=== PATIENT | female | born 1960 | race African-American/Black ===

== ENCOUNTER 2021-09-15 22:51 | Emergency (ER) | payer MEDICARE, OTHER ==
[~2021-09-15] VITALS: Ht 160 cm; Wt 111.1 kg
[2021-09-16] MEDS ORDERED: ALBUTEROL/IPRATROPIUM 3 ML NEB NEB ONE
[2021-09-16 00:14] LABS: BASOPHILS % 0.5 % (0.0-1.0); EOSINOPHILS # (AUTO) 0.2 (0.0-0.4); EOSINOPHILS % 3.1 % (0.0-6.0); HEMATOCRIT 40.6 % (34.2-44.1); HEMOGLOBIN 12.5 g/dL (12.0-16.0); LYMPHOCYTES % 40.2 % (18.0-39.1); MEAN CORPUSCULAR HEMOGLOBIN 31.7 pg (28-32); MEAN CORPUSCULAR HGB CONC 30.8 g/dL (31-35); MONOCYTES # (AUTO) 0.6 (0.2-0.8); MONOCYTES % 8.5 % (4.4-11.3); NEUTROPHILS # (AUTO) 3.5 (2.1-6.9); NEUTROPHILS % 47.4 % (38.7-80.0); PLATELET COUNT 217 x10e3/uL (140-360); RED BLOOD COUNT 3.94 x10e6/uL (3.6-5.1); RED CELL DISTRIBUTION WIDTH 17.8 % (11.7-14.4)
[2021-09-16 00:34] LABS: ALANINE AMINOTRANSFERASE 8 IU/L (0-55); ALBUMIN 3.9 g/dL (3.5-5.0); ALBUMIN/GLOBULIN RATIO 1.3 (0.8-2.0); ALKALINE PHOSPHATASE 70 IU/L (40-150); ANION GAP 14.2 mmol/L (8-16); BLOOD UREA NITROGEN 10 mg/dL (7-26); BUN/CREATININE RATIO 12 (6-25); CARBON DIOXIDE 28 mmol/L (22-29); CHLORIDE 102 mmol/L (98-107); CREATINE KINASE 43 IU/L (29-168); CREATININE, SERUM 0.82 mg/dL (0.57-1.11); EST GLOMERULAR FILTRATION RATE 71 ML/MIN (60-); GLUCOSE 165 mg/dL (74-118); POTASSIUM 4.2 mmol/L (3.5-5.1); SODIUM 140 mmol/L (136-145)
== END 2021-09-16 02:07 | disposition home or self-care (01) ==
LOC: ER 23:56
DX: R06.02 Shortness of breath (principal); J45.909 Unspecified asthma, uncomplicated; I10 Essential (primary) hypertension; Z20.822 Contact with and (suspected) exposure to COVID-19; F17.210 Nicotine dependence, cigarettes, uncomplicated
CPT/HCPCS: 36415; 71045; 80053; 82550; 82553; 83880; 84484; 85025; 93005; 94640; 94799; 99284; U0002